=== PATIENT | male | born 1945 | race Caucasian/White ===

== ENCOUNTER → 2018-05-06 | Outpatient (CLI) | payer OTHER ==
[~2018-05-06] MED LIST: ATORVASTATIN CA80 MG PO; BENAZEPRIL HCL40 MG PO; VIAGRA100 MG PO
--- NOTE | ~2018-05-06 | EXE ---
[facility]aila [employer] [place] [place] [address] STRESS ECHOCARDIOGRAM Name: LOI LEZAMA Room #: REG MARYJANE Gardner#: [id number] Admission: 05/06/18 Attend Phys: Ranjeet Matthews Discharge: Date of : 47 Date of Service: 05/07/18 0929 Report #: [id number] THIS REPORT FOR: //name// APPROVED REPORT Study performed: 05/06/2018 11:09:59 Exam: Stress Echocardiogram Indication: CAD s/p CABG, Dyspnea Patient Location: Out-Patient Stress Nurse: Carmelita Palumbo RN Room #: Echo lab 2 Status: routine Ht: 6 ft 2 in HR: 64 bpm BP: 120/82 mmHg Rhythm: NSR Medical History Medical History: CAD s/p CABG, HTN, Hyperlipidemia Cardiac Risk Factors: HTN, Hyperlipidemia, FHX of CAD Previous Cardiac Procedures: CABG Procedure The patient underwent an Exercise Stress Test using the Adán Protocol. Blood pressure, heart rate, and EKG were monitored. An Echocardiogram was performed by data acquisition technician in four stages in quad fashion. At peak stress, four selected images were obtained and placed side by side with resting images for comparison. Stress Test Details Stress Test: Exercise stress testing was performed using a Adán protocol. HR Resting HR: 64 bpm Max Heart Rate (APMHR): 149 bpm Max HR Achieved: 169 bpm Target HR (85% APMHR): 126 bpm % of APMHR: 113 Recovery HR: 86 bpm HR response to stress: Normal HR response to stress BP Resting BP: 120/82 mmHg Max BP: 180/80 mmHg Recovery BP: 144/80 mmHg BP response to stress: Normal blood pressure response to [facility] [address] [place] [address] STRESS ECHOCARDIOGRAM Name: LOI LEZAMA Room #: REG CL Jayshree#: [id number] Admission: 05/06/18 Attend Phys: Ranjeet Matthews Discharge: Date of : 47 Date of Service: 05/07/18 0929 Report #: [id number] stress. ECG Resting ECG: Sinus Rhythm Stress ECG: Sinus Tachycardia Arrhythmia: VPC's Recovery ECG: Sinus Rhythm Clinical Reason for Termination: Maximal effort Exercise duration: 8 min sec Highest Stage Achieved: Stage 3: 3.4 mph at 14% grade. Exercise capacity: 10.1 METs Overall Exercise Capacity for Age: Good Stress ECG Conclusion 1.Subjectively negative for ischemia 2. Electrocardiographically negative for ischemia 3. Satisfactory functioal capacity Pre-Stress Echo The resting Echocardiogram showed normal left ventricular contractility with an estimated Ejection Fraction of about >55%. Post-Stress Echo The stress Echocardiogram showed normal left ventricular contractility with an estimated Ejection Fraction of about 65-70%. Clinical Normal augmentation of myocardial wall segments using a 17 segment model. Conclusion Clinical Response: Non-ischemic Exercise Capacity: Average Stress ECG Response: Non-ischemic 1. Low risk study Other Information Study Quality: Adequate <Conclusion> 1. Low risk study <ELECTRONICALLY SIGNED> By: Ranjeet Gutiérrez MD 05/07/18928 8 8 Ranjeet Gutiérrez MD /INF
== END ==
LOC: CV 09:53
DX: I25.10 Atherosclerotic heart disease of native coronary artery without angina pectoris (principal); R06.00 Dyspnea, unspecified; I10 Essential (primary) hypertension; E78.5 Hyperlipidemia, unspecified; Z95.1 Presence of aortocoronary bypass graft

== ENCOUNTER → 2019-06-22 | Outpatient (CLI) | payer OTHER | LOC: SJCVC 10:11 | DX: R94.31 Abnormal electrocardiogram [ECG] [EKG] (principal); I25.10 Atherosclerotic heart disease of native coronary artery without angina pectoris; I10 Essential (primary) hypertension; I48.0 Paroxysmal atrial fibrillation; N52.1 Erectile dysfunction due to diseases classified elsewhere ==

== ENCOUNTER → 2021-01-01 | Outpatient (CLI) | payer OTHER | LOC: SJCVCIMAG 07:34 | PROVIDERS: ATTEND Internal Medicine | DX: R94.31 Abnormal electrocardiogram [ECG] [EKG] (principal); I51.7 Cardiomegaly; I25.10 Atherosclerotic heart disease of native coronary artery without angina pectoris; I48.0 Paroxysmal atrial fibrillation; I10 Essential (primary) hypertension; E78.5 Hyperlipidemia, unspecified; Z79.82 Long term (current) use of aspirin; Z79.899 Other long term (current) drug therapy; Z95.1 Presence of aortocoronary bypass graft ==